=== PATIENT | male | born 1960 | race Caucasian/White ===

== ENCOUNTER 2024-05-19 16:50 | Emergency (ER) | payer OTHER ==
[~2024-05-19] VITALS: Ht 180.3 cm; Wt 82.4 kg
[2024-05-19 17:28] LABS: BASOPHILS 0.5 % (0-2); EOSINOPHILS 2.2 % (0-6); HEMOGLOBIN 14.8 g/dL (12.0-18.0); LYMPHOCYTES 28.4 % (24-44); MCH 30.5 (27-36); MCHC 33.7 g/dl (30-36); MCV 90.6 fl (81-99); MONOCYTES 6.5 % (0-12); NEUTROPHILS 62.4 % (39-80); PLATELET COUNT 200 K/uL (140-440); RBC 4.86 M/ul (4.3-5.7); RDW 14.4 (10.5-15.0)
[2024-05-19 17:47] LABS: ALBUMIN/GLOBULIN RATIO 1.08 (1.1-2.4); ALKALINE PHOSPHATASE 103 U/L (46-116); ALT (SGPT) 32 U/L (14-59); ANION GAP 13.1 (7-21); AST (SGOT) 25 U/L (15-37); BILIRUBIN, TOTAL 0.6 ng/dL (0.2-1.0); BUN/CREATININE RATIO 11.11 (6.0-28.6); CALCIUM 8.8 mg/dL (8.5-10.1); CARBON DIOXIDE 29 mmol/L (21-32); CHLORIDE 99 mmol/L (98-107); CREATININE, SERUM 1.17 mg/dL (0.70-1.30); GLOMERULAR FILTRATION RATE,EST 70 mL/min (>60); POTASSIUM 4.1 mmol/L (3.5-5.1); PROTEIN, TOTAL 7.7 g/dL (6.4-8.2); UREA NITROGEN 13 mg/dL (7-18)
[2024-05-19 19:25] VITALS: BP 96/74
--- NOTE | 2024-05-22 08:27 | EKG ---
[facility] [address] [place], [place] [address] Signed Normal sinus rhythm Normal ECG No previous ECGs available Confirmed by Daniella Weston MD ([id number]) on 05/22/2024 8:26:43 AM Electronically Signed By: DANIELLA WESTON MD 05/22/24 0827 PATIENT NAME: AMBER DUGAN Electrocardiogram DATE OF : 60 PHYSICIAN: DANIELLA WESTON MD REPORT #: [id number] REPORT IS CONFIDENTIAL AND NOT TO BE RELEASED WITHOUT AUTHORIZATION
== END 2024-05-19 19:26 | disposition home or self-care (01) ==
LOC: ED 16:50
PROVIDERS: Emergency Medicine
DX: I49.3 Ventricular premature depolarization (principal); I10 Essential (primary) hypertension; J44.89 Other specified chronic obstructive pulmonary disease
CPT/HCPCS: 36415; 80053; 83735; 84484; 85025; 93005; 93010; 99285